=== PATIENT | female | born 1945 | race Caucasian/White ===

== ENCOUNTER 2017-01-24 06:01 | Day surgery (SDC) | payer MEDICARE ==
[~2017-01-24] VITALS: Ht 170.2 cm; Wt 89.4 kg
[~2017-01-24 06:01] MED LIST: ALLO100T PO; AMBI10TA PO; ESTR1 PO; FURO20 PO; GABA300C3 PO; GUAI100S6 PO; HYDR-2768 PO; LISI-360 PO; METH4PAK PO; OMEP20TA39 PO; OYST500T77 PO; PRED20 PO; ULTR50TA PO; VESI5TAB PO; ZITH250T PO
[2017-01-24] MEDS ORDERED: LACTATED RINGER'S 1000 ML IV PRN (06:30)
[2017-01-24] MEDS ORDERED: CHLORHEXIDINE GLUCONATE 2 % 1 PACK (2 CLOTHS) TOPICAL PRN (06:30)
[2017-01-24] MEDS ORDERED: METOPROLOL TARTRATE 25 MG TAB PO PRN (06:30)
[2017-01-24] MEDS ORDERED: SODIUM CHLORID 0.9% 500 ML IV PRN (06:30)
[2017-01-24] MEDS ORDERED: INSULIN HUMAN REGULAR 1,000 UNITS/10 ML VIAL SQ PRN (06:30)
[2017-01-24] MEDS ORDERED: POVIDONE IODINE 5% (ANTISEPSIS KIT) 4 APPLICATIONS EACH NARE PRN (06:30)
[2017-01-24] MEDS ORDERED: FURO20TA PO (06:50)
[2017-01-24] MEDS ORDERED: PROBCAP4 PO (06:50)
[2017-01-24] MEDS ORDERED: ESTR2TAB4 PO (06:50)
[2017-01-24] MEDS ORDERED: GABA300C5 PO (06:50)
[2017-01-24] MEDS ORDERED: CYCL1TAB29 PO (06:50)
[2017-01-24] MEDS ORDERED: ALLO100T PO (06:50)
[2017-01-24] MEDS ORDERED: OMEP40CA2 PO (06:53)
[2017-01-24] MEDS ORDERED: LISI-515 PO (06:53)
[2017-01-24] MEDS ORDERED: TRAM50TA PO (06:53)
[2017-01-24] MEDS ORDERED: [UNRECOGNIZED DRUG - CODE] PO (06:53)
[2017-01-24] MEDS ORDERED: TRIA1CAP PO (06:53)
[2017-01-24] MEDS ORDERED: VESI5TAB PO (07:31)
[2017-01-24] MEDS ORDERED: PERC5TAB12 PO (07:33)
[2017-01-24] MEDS ORDERED: IOHEXOL 350 MG/ML 100 ML BTL (for Cath Lab) OTHER ONE (08:48)
[2017-01-24] MEDS ORDERED: IOHEXOL 350 MG/ML 50 ML BTL (for Cath Lab) OTHER ONE (08:48)
[2017-01-24] MEDS ORDERED: HEPARIN SODIUM - IV 10,000 UNITS/10 ML VIAL ONE ×2 (08:56→09:17)
[2017-01-24] MEDS ORDERED: MIDAZOLAM HCL 5 MG/ML VIAL (1 ML) ONE ×2 (08:57→10:01)
[2017-01-24] MEDS ORDERED: NITROGLYCERIN INJ 5 ML ONE (11:30)
[2017-01-24] MEDS ORDERED: CLOPIDOGREL 300 MG TAB ONE (11:32)
--- NOTE | 2017-01-24 11:44 | MA ---
cc: THEO OVERTON DATE: 01/24/2017 PREOPERATIVE DIAGNOSIS Nonhealing wound left lower extremity with a lesion of the left superficial femoral artery/popliteal artery. SURGEON Theo Overton, DO PROCEDURE 1. Aortogram. 2. Selective left lower extremity arteriogram. 3. Balloon angioplasty and selective stenting of the left superficial femoral artery and popliteal artery with a 4 mm x 8 cm balloon , 5 mm x 8 cm Admiral IN PACT drug coated balloon and then a 8 cm x 6 mm Medtronic balloon. 4. Stent was a EV3 8 cm x 6 mm EV3 stent. IV FLUIDS Approximately 1 liter and moderate sedation. ESTIMATED BLOOD LOSS Minimal. URINE OUTPUT Not calculated. PROCEDURE The patient's bilateral groins were prepped and draped in sterile fashion. I got access to the right common femoral artery using Duplex ultrasound. I did inject 5 ccs of 1% lidocaine and anesthetized the subcu tissue. I then exchanged for a 5-English sheath, using Seldinger technique, I advanced my Omni flush catheter into the abdominal aorta. I shot an AP aortogram. I pulled my catheter out and shot pelvic oblique arteriogram. I then selected out the left external iliac common femoral artery and shot a selective left lower extremity arteriogram. After I shot my left lower extremity arteriogram I exchanged for a 6-English 45 cm destination sheath. 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 I used a Cook weighted crossing catheter, PHARMACEUTICAL DETAILER wire as well as a quick cross catheter to cross the lesion. I got across the lesion then heparinized the patient to an ACT of greater than 200. I performed balloon angioplasty with a 4 mm x 8 cm balloon. There was still residual stenosis at least 50%. I then used a drug coated balloon which was a 8 cm x 5 mm balloon and then afterwards there was still residual stenosis of approximately 50%. Then I used a 6 cm x 6 mm x 8 cm balloon and at low inflation of 6 atmospheres, there was still residual stenosis but now at this point there was a dissection which had a flow limitation. Based on this I placed a 6 mm x 8 cm EV3 self-expanding stent. At the end of the procedure the patient had good blood flow distally, at the level of the foot, there was signals. My other findings were that the abdominal aorta was widely patent. The bilateral renal arteries were patent. Bilateral common, internal and external iliac arteries were patent. The right common femoral artery and proximal superficial femoral artery as well as profunda femoral artery were patent with minimal disease. The left common femoral, profunda femoral artery and superficial femoral artery were widely patent. Proximally there was a chronic total occlusion that was treated as just dictated and it should be noted the distal SFA and popliteal artery were treated as described. The patient afterward did have good flow through the at knee and below-knee popliteal artery with three-vessel runoff across the level of the ankle. The patient tolerated the procedure well. 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 DO JIMENEZ Barba/RONAK /10:57 AM /11:14 AM
--- NOTE | 2017-01-24 18:44 | EKG ---
Date Performed: 01/24/2017 Time Performed: 06:56:14 PTAGE: 71 years EKG: Sinus rhythm NORMAL ECG NO PREVIOUS TRACING DOCTOR: Dominik Garcia Interpretating Date/Time 01/24/2017 18:42:41
== END 2017-01-24 15:07 | disposition home or self-care (01) ==
LOC: HSDC 06:01
PROVIDERS: ATTEND Surgery
DX: I73.9 Peripheral vascular disease, unspecified (principal); I77.1 Stricture of artery; Z01.810 Encounter for preprocedural cardiovascular examination; Z01.818 Encounter for other preprocedural examination
CPT/HCPCS: 37226; 75625; 75716; 85002; 93005; C1725; C1876; J1644; J2250; J3010; Q9967

== ENCOUNTER 2017-06-14 12:00 | Inpatient (IN) | payer MEDICARE ==
[~2017-06-14] VITALS: Ht 170.2 cm; Wt 85.0 kg
[~2017-06-14 12:00] MED LIST changes: -AMBI10TA PO; +CYCL1TAB29 PO; -ESTR1 PO; +ESTR2TAB4 PO; -FURO20 PO; +FURO20TA PO; -GABA300C3 PO; +GABA300C5 PO; -GUAI100S6 PO; -HYDR-2768 PO; -LISI-360 PO; +LISI-515 PO; -METH4PAK PO; -OMEP20TA39 PO; +OMEP40CA2 PO; -OYST500T77 PO; +PERC5TAB12 PO; -PRED20 PO; +PROBCAP4 PO; +TRAM50TA PO; +TRIA1CAP PO; -ULTR50TA PO; -ZITH250T PO; +[UNRECOGNIZED DRUG - CODE] PO
[2017-06-14 12:02] VITALS: BP 167/74; PULSE 80; RESP 12; TEMP 98.1; O2SAT 97
--- NOTE | 2017-06-14 12:08 | PD ---
Physical Exam Time Seen by Provider: 12:07 Narrative 71-year-old female sent by Dr. Mccoy for right second and third toe infections [address] Mccoy wants her admitted with IV antibiotics. Stage III kidney disease. Denies diabetes. Denies fever, vomiting. Patient seen in triage. VS reviewed. Patient awaiting bed placement. Data Data Last Documented VS Vital Signs Date Time Temp Pulse Resp B/P (MAP) Pulse Ox O2 Delivery O2 Flow Rate FiO2 06/14/17 12:02 98.1 80 12 167/74 (105) 97 MDM Supervised Visit with LIZETT: Марина Allan Jun 14, 2017 12:08
[2017-06-14 12:17] VITALS: BP 147/70; PULSE 72; RESP 20; TEMP 97.8; O2SAT 99
[2017-06-14 12:52] LABS: BASOPHIL % 0.6 % (0.0-2.0); EOSINOPHIL # 0.1 TH/MM3 (0-0.4); EOSINOPHIL % 2.2 % (0.0-4.0); HEMATOCRIT 32.7 % (35.0-46.0); HEMO FLAGS DIFF FINAL; LYMPH % 40.9 % (9.0-44.0); LYMPHOCYTE # 2.5 TH/MM3 (1.0-4.8); MEAN CELL VOLUME 84.9 FL (80.0-100.0); MEAN CORPUSCULAR HEMOGLOBIN 26.4 PG (27.0-34.0); MEAN CORPUSCULAR HGB CONC 31.1 % (32.0-36.0); NEUT % 49.3 % (16.0-70.0); PLATELET COUNT 268 TH/MM3 (150-450); RED BLOOD COUNT 3.85 MIL/MM3 (4.00-5.30); RED CELL DISTRIBUTION WIDTH 14.8 % (11.6-17.2); WHITE BLOOD COUNT 6.2 TH/MM3 (4.0-11.0)
--- NOTE | 2017-06-14 12:54 | PD ---
HPI Chief Complaint: Skin Problem Time Seen by Provider: 12:14 Travel History International Travel<30 days: No Contact w/Intl Traveler<30days: No Traveled to known affect area: No History of Present Illness HPI 70-year-old female that presents to the ED for evaluation of infection to her right third toe. Patient reports that about 10-14 days ago she injured her toes. Per patient she hit them with a piece of furniture. Per patient she had black toes on the third, second and fourth digits. Per patient she didn't think much of it and she continue her daily living. Patient has chronic neuropathy such she doesn't have much sensation down on the toes. Per patient starting around Saturday and Saturday she noted that she started having some erythema and swelling of the third toe which have continued. She had made an appointment with Dr. Donaldson and she was seen today by him who recommended that she comes here to get evaluated for IV antibiotics as patient was very concerning for osteomyelitis. Patient comes here with a prescription note that states that Dr. Donaldson wants the patient to be admitted, started on IV antibiotics with renal dose, 1 cultures labs as well as consultation to his partner Dr. Ozuna. Patient states that her pain currently history out of 10. Per patient she has no fevers chills or sweats. No history of diabetes or immunosuppression. She has never had anything like this before. She states the Darius did an x-ray at the office that showed possible osteomyelitis. No other medical issues reported. She does take Plavix. She has not taken anything for this so far. PFSH Past Medical History Hx Anticoagulant Therapy: Yes (PLAVIX) Anxiety: Yes Cancer: Yes (SKIN) High Cholesterol: Yes GERD: Yes Hiatal Hernia: Yes Hypertension: Yes Musculoskeletal: Yes (arthritis) Reproductive: Yes (LOW ESTRAGEN) Triglycerides - High: Yes Past Surgical History Abdominal Surgery: Yes (HERNIA REPAIR) Gynecologic Surgery: Yes (TL;Hysterectomy) Hysterectomy: Yes Other Surgery: Yes (SKIN) Social History Alcohol Use: Yes (SOCIAL) Tobacco Use: No Substance Use: No Allergies-Medications (Allergen,Severity, Reaction): Coded Allergies: No Known Allergies (Verified , 06/14/17) Reported Meds & Prescriptions Reported Meds & Active Scripts Active Reported Percocet (Oxycodone-Acetaminophen) 5-325 mg Tab 1 Tab PO Q6H PRN Vesicare (Solifenacin) 5 Mg Tab 5 Mg PO DAILY Triamterene-Hydrochlorothiazide 50-25 Mg Cap 1 Cap PO DAILY Tramadol (Tramadol HCl) 50 Mg Tab 50 Mg PO Q6H PRN Klor-Con M15 (Potassium Chloride Microencaps) 15 Meq Tab 15 Meq PO Q12HR Omeprazole 40 Mg Cap 40 Mg PO DAILY Lisinopril 20 Mg Tab 20 Mg PO DAILY Probiotic Acidophilus (Probiotic Product) 1 Cap Cap 1 Cap PO DAILY Gabapentin 300 Mg Cap 300 Mg PO TID Furosemide 20 Mg Tab 20 Mg PO DAILY Estrace (Estradiol) 2 Mg Tab 2 Mg PO DAILY Flexeril (Cyclobenzaprine HCl) 10 Mg Tab 10 Mg PO DAILY Allopurinol 100 Mg Tab 100 Mg PO DAILY Review of Systems Except as stated in HPI: all other systems reviewed are Neg Physical Exam Narrative GENERAL: SKIN: Warm and dry. HEAD: Atraumatic. Normocephalic. EYES: Pupils equal and round. No scleral icterus. No injection or drainage. ENT: No nasal bleeding or discharge. Mucous membranes pink and moist. Tongue is midline. No uvula deviation. NECK: Trachea midline. No JVD. CARDIOVASCULAR: Regular rate and rhythm. No murmurs, S3, S4. RESPIRATORY: No accessory muscle use. Clear to auscultation. Breath sounds equal bilaterally. GASTROINTESTINAL: Abdomen soft, non-tender, nondistended. Hepatic and splenic margins not palpable. MUSCULOSKELETAL: Extremities without clubbing, cyanosis, or edema. No obvious deformities. Full range of motion of all upper and lower extremities. Patient does have what appears to be erythema and swelling noted on the right third toe. Erythematous and warm to the touch. Patient does have a what appears to be a small ulceration to the tip of the digit on the plantar aspect with some purulence coming out of it. Slightly tender but not significantly tender. About 1-1/2 size bigger than the other toes. Most of the erythema is on the dorsal aspect of the toe but also noted on the plantar aspect of it. Good capillary refill. 2+ pulses bilaterally. NEUROLOGICAL: Awake and alert. No obvious cranial nerve deficits. Motor grossly within normal limits. Five out of 5 muscle strength in the arms and legs. Normal speech. PSYCHIATRIC: Appropriate mood and affect; insight and judgment normal. Data Data Last Documented VS Vital Signs Date Time Temp Pulse Resp B/P (MAP) Pulse Ox O2 Delivery O2 Flow Rate FiO2 06/14/17 12:17 97.8 72 20 147/70 (95) 99 Room Air Orders Orders Complete Blood Count With Diff (06/14/17 12:22) Basic Metabolic Panel (Bmp) (06/14/17 12:22) Blood Culture (06/14/17 12:22) Westergren Sedimentation Rate (06/14/17 12:22) Magnesium (Mg) (06/14/17 12:22) Wound Culture And Gram Stain (06/14/17 12:22) Iv Access Insert/Monitor (06/14/17 12:22) C-Reactive Protein (Crp) (06/14/17 12:54) Coag Profile (06/14/17 13:25) Piperacil-Tazo 2.25 Gm Premix (Zosyn 2.2 (06/14/17 14:00) Admit Order (Ed Use Only) (06/14/17 13:41) Consult Podiatry (06/14/17 ) Labs Laboratory Tests Test 06/14/17 12:30 White Blood Count 6.2 TH/MM3 Red Blood Count 3.85 MIL/MM3 Hemoglobin 10.2 GM/DL Hematocrit 32.7 % Mean Corpuscular Volume 84.9 FL Mean Corpuscular Hemoglobin 26.4 PG Mean Corpuscular Hemoglobin Concent 31.1 % Red Cell Distribution Width 14.8 % Platelet Count 268 TH/MM3 Mean Platelet Volume 7.3 FL Neutrophils (%) (Auto) 49.3 % Lymphocytes (%) (Auto) 40.9 % Monocytes (%) (Auto) 7.0 % Eosinophils (%) (Auto) 2.2 % Basophils (%) (Auto) 0.6 % Neutrophils # (Auto) 3.0 TH/MM3 Lymphocytes # (Auto) 2.5 TH/MM3 Monocytes # (Auto) 0.4 TH/MM3 Eosinophils # (Auto) 0.1 TH/MM3 Basophils # (Auto) 0.0 TH/MM3 CBC Comment DIFF FINAL Differential Comment Erythrocyte Sedimentation Rate 46 mm/hr Blood Urea Nitrogen 20 MG/DL Creatinine 1.35 MG/DL Random Glucose 117 MG/DL Calcium Level 8.7 MG/DL Magnesium Level 2.2 MG/DL Sodium Level 138 MEQ/L Potassium Level 4.0 MEQ/L Chloride Level 106 MEQ/L Carbon Dioxide Level 25.8 MEQ/L Anion Gap 6 MEQ/L Estimat Glomerular Filtration Rate 38 ML/MIN MDM Medical Decision Making Medical Screen Exam Complete: Yes Emergency Medical Condition: Yes Medical Record Reviewed: Yes Interpretation(s) CBC & BMP Diagram 06/14/17 12:30 Calcium Level 8.7, Magnesium Level 2.2 ESR elevated Differential Diagnosis Osteomyelitis versus cellulitis versus toe infection versus kidney disease Narrative Course 70-year-old female that presents to the ED for evaluation of possible infection to the right third toe. Patient was properly examined and was found to have signs and symptoms consistent with infection. Patient comes here with orders by the patient's plight just Dr. Donaldson for admission for IV antibiotics secondary to significant infection to the toe and her kidney disease. Labs were ordered. Patient will be started on Zosyn as per my attendings recommendations. Will wait for creatinine to check for creatinine clearance. Creatinine clearance was 42. At this time we'll start her on Zosyn. Labs were essentially unremarkable with an elevated ESR. Case was discussed with Dr. srinivasan for agrees to admission to the [facility]. I placed a consult to Dr. Ozuna as per target setter recommendations. Diagnosis Primary Impression: Cellulitis of toe of right foot Additional Impression: Osteomyelitis Qualified Codes: M86.9 - Osteomyelitis, unspecified Admitting Information Admitting Physician Requests: Admit Earl Leslie Jun 14, 2017 12:54
[2017-06-14 13:13] LABS: BICARBONATE 25.8 MEQ/L (21.0-32.0); MAGNESIUM 2.2 MG/DL (1.5-2.5)
[2017-06-14] MEDS ORDERED: PIPERACIL-TAZO 2.25 GM PREMIX 50 ML IV ONE (14:00)
[2017-06-14] MEDS ORDERED: ACETAMINOPHEN 325 MG TAB PO PRN (14:15)
[2017-06-14] MEDS ORDERED: BISACODYL 10 MG SUPP RECTAL PRN (14:15)
[2017-06-14] MEDS ORDERED: MAGNESIUM HYDROXIDE SUSP 30 ML CUP PO PRN (14:15)
[2017-06-14] MEDS ORDERED: TEMAZEPAM 15 MG CAP PO PRN (14:15)
[2017-06-14] MEDS ORDERED: SODIUM CHLORIDE 0.9% FLUSH 10 ML FLUSH IV FLUSH PRN (14:15)
[2017-06-14] MEDS ORDERED: LACTULOSE SYRUP 20 GM/30 ML CUP PO PRN (14:15)
[2017-06-14] MEDS ORDERED: SENNOSIDES 8.6 MG TAB PO PRN (14:15)
[2017-06-14] MEDS ORDERED: ONDANSETRON HCL 4 MG/2 ML VIAL IVP PRN (14:15)
[2017-06-14] MEDS ORDERED: NALOXONE HCL 0.4 MG/ML AMP IV PUSH PRN (14:15)
--- NOTE | 2017-06-14 14:16 | HHI.HP ---
HPI Service [facility] Primary Care Physician Artis Alexis MD Admission Diagnosis acute right 3rd toe cellulitis with osteomyelitis Diagnoses: Chief Complaint: RIGHT FOOT PAIN Travel History International Travel<30 Days: No Contact w/Intl Traveler <30 Da: No Traveled to Known Affected Are: No History of Present Illness Mrs. Sequeira is a pleasant 71-year-old white female with significant past medical history of peripheral arterial disease status post left SFA stent and angioplasty, peripheral neuropathy, hypertension, hyperlipidemia. 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 According to the patient, approximately 12 days ago she injured her toes on a piece of furniture. Initially she had bruising she didn't think much of it and continue on with her activities. Patient has history of chronic neuropathy and has chronic burning- like sensation. Her sensation is diminished on her toes. On Saturday, she started to notice some erythema and swelling of the third toe which continued up to the foot with swelling and erythema. She went to see her screed operator Dr. Nakul Medina who evaluated her and instructed her to come to the emergency room for evaluation. Indicates that he collected cultures and did imaging studies and there was concern that this could be osteomyelitis. Patient does have a history of chronic kidney disease stage III for which she sees Dr. Eugene. It appears that she is at baseline. Patient denies any fever, no chills. No recent chest pain, no shortness of breath. She does have some occasional low back pain with activity. Indicates she had redo L3 L4 L5 surgery at [facility]. She is on tramadol and Tylenol as needed for pain. Additionally, around November of this year she had a wound to the left anterior tibia and left foot small toe that were not healing. She was evaluated and was found to have severe peripheral vascular disease. On 01/24/2017, she underwent balloon angioplasty and stent to the left superficial femoral artery and popliteal artery per Dr. Gamble. She was put on Plavix. Indicates that she's had problems with her feet in the past. She had 2 surgeries to the toes on the right foot. Indicates that the neuropathy has become severe over the years and only controlled on gabapentin. She's due to see a neurologist. Patient was evaluated in emergency room, laboratory workup was completed. CBC unremarkable other than mild anemia. Sedimentation rate 46. Patient has been started on antibiotics. At this time she is complaining of pain. Patient is admitted for further evaluation and treatment. Review of Systems Constitutional: DENIES: Diaphoretic episodes, Fatigue, Fever, Weight gain, Weight loss, Chills, Dizziness, Change in appetite, Night Sweats Endocrine: DENIES: Abnorml menstrual pattern, Heat/cold intolerance, Polydipsia , Polyuria, Polyphagia Eyes: DENIES: Blurred vision, Diplopia, Eye inflammation, Eye pain, Vision loss , Photosensitivity, Double Vision Ears, nose, mouth, throat: DENIES: Tinnitus, Hearing loss, Vertigo, Nasal discharge, Oral lesions, Throat pain, Hoarseness, Ear Pain, Running Nose, Epistaxis, Sinus Pain, Toothache, Odynophagia Respiratory: DENIES: Apneas, Cough, Snoring, Wheezing, Hemoptysis, Sputum production, Shortness of breath Cardiovascular: DENIES: Chest pain, Palpitations, Syncope, Dyspnea on Exertion , PND, Lower Extremity Edema, Orthopnea, Claudication Gastrointestinal: COMPLAINS OF: Constipation, DENIES: Abdominal pain, Black stools, Bloody stools, Diarrhea, Nausea, Vomiting, Difficulty Swallowing, Anorexia Genitourinary: DENIES: Abnormal vaginal bleeding, Dysmenorrhea, Dyspareunia, Sexual dysfunction, Urinary frequency, Urinary incontinence, Urgency, Hematuria , Dysuria, Nocturia, Vaginal discharge Musculoskeletal: COMPLAINS OF: Joint pain (occasional low back pain, with sciatica), Joint Swelling (right foot second third and fourth toe with swelling , redness.), Neck pain (complains of neck pain radiating to the right shoulder, with tingling of fingers on the right hand.), DENIES: Muscle aches, Stiffness, Back pain Integumentary: DENIES: Abnormal pigmentation, Pruritus, Rash, Nail changes, Breast masses, Breast skin changes, Nipple discharge Hematologic/lymphatic: COMPLAINS OF: Bruising (bruises easily, on Plavix. Also was on steroids.), DENIES: Lymphadenopathy Immunologic/allergic: DENIES: Eczema, Urticaria Neurologic: DENIES: Abnormal gait, Headache, Localized weakness, Paresthesias, Seizures, Speech Problems, Tremor, Poor Balance Psychiatric: DENIES: Anxiety, Confusion, Mood changes, Depression, Hallucinations, Agitation, Suicidal Ideation, Homicidal Ideation, Delusions Past Family Social History Past Medical History PDV, follows regularly with Dr. Hills. Chronic back pain, was seen pain management. Used to have facet joint injections. Peripheral neuropathy, etiology unknown. Does not have diabetes. Has been recommended to follow-up with neurology Gout Arthritis Reflux Hypertension Overactive bladder Chronic kidney disease stage III, follows up with Dr. Eugene Polymyalgia rheumatica, was on steroids for a year and a half Basal cell skin cancer Had chronic left fifth toe and left anterior chin wound for a few months, it is now healed. Past Surgical History 01/24/2017, status post aortogram, balloon angioplasty and stent to the left superficial femoral artery and popliteal artery. Left ulnar transposition 5 years ago L3-L4 lumbar surgery January 2016, had redo of L3 L4 L5 November 2016. Both surgeries were done by Dr. Oconnell Right foot toe surgery many years ago Hysterectomy Hernia repair 2 Reported Medications Reported Meds & Active Scripts Active Reported Percocet (Oxycodone-Acetaminophen) 5-325 mg Tab 1 Tab PO Q6H PRN Vesicare (Solifenacin) 5 Mg Tab 5 Mg PO DAILY Triamterene-Hydrochlorothiazide 50-25 Mg Cap 1 Cap PO DAILY Tramadol (Tramadol HCl) 50 Mg Tab 50 Mg PO Q6H PRN Klor-Con M15 (Potassium Chloride Microencaps) 15 Meq Tab 15 Meq PO Q12HR Omeprazole 40 Mg Cap 40 Mg PO DAILY Lisinopril 20 Mg Tab 20 Mg PO DAILY Probiotic Acidophilus (Probiotic Product) 1 Cap Cap 1 Cap PO DAILY Gabapentin 300 Mg Cap 300 Mg PO TID Furosemide 20 Mg Tab 20 Mg PO DAILY Estrace (Estradiol) 2 Mg Tab 2 Mg PO DAILY Flexeril (Cyclobenzaprine HCl) 10 Mg Tab 10 Mg PO DAILY Allopurinol 100 Mg Tab 100 Mg PO DAILY Allergies: Coded Allergies: No Known Allergies (Verified , 06/14/17) Active Ordered Medications Inpatient Medications Acetaminophen (Tylenol) 650 mg Q4H PRN PO TEMP > 100.4; Start 06/14/17 at 14:15 ; Status UNV Allopurinol (Zyloprim) 100 mg DAILY PO ; Start 06/15/17 at 09:00; Status UNV Bisacodyl (Dulcolax Supp) 10 mg DAILY PRN RECTAL SEVERE CONSITIPATION; Start at 14:15; Status UNV Cyclobenzaprine HCl (Flexeril) 10 mg DAILY PO ; Start 06/15/17 at 09:00; Status UNV Estradiol (Estradiol) 2 mg DAILY PO ; Start 06/15/17 at 09:00; Status UNV Furosemide (Lasix) 20 mg DAILY PO ; Start 06/15/17 at 09:00; Status UNV Gabapentin (Neurontin) 300 mg TID PO ; Start 06/14/17 at 18:00; Status UNV Heparin Sodium (Porcine) (Heparin Inj) 5,000 units Q12H SQ ; Start 06/14/17 at 14:15; Status UNV Lactulose (Lactulose Liq) 30 ml DAILY PRN PO SEVERE CONSITIPATION; Start at 14:15; Status UNV Lisinopril (Prinivil) 20 mg DAILY PO ; Start 06/15/17 at 09:00; Status UNV Magnesium Hydroxide (Milk Of Magnesia Liq) 30 ml Q12H PRN PO MILD - MODERATE CONSTIPATION; Start 06/14/17 at 14:15; Status UNV Naloxone HCl (Narcan Inj) 0.4 mg UNSCH PRN IV PUSH SEE LABEL COMMENTS; Start at 14:15; Status UNV Non-Formulary Medication 1 cap DAILY PO ; Start 06/15/17 at 09:00; Status UNV Ondansetron HCl (Zofran Inj) 4 mg Q6H PRN IVP NAUSEA OR VOMITING; Start at 14:15; Status UNV Piperacillin Sod/ Tazobactam Sod 50 ml @ 100 mls/hr ONCE ONCE IV ; Start 06/14 at 14:00; Stop 06/14/17 at 14:29 Senna/Docusate Sodium (Dora-Colace) 1 tab BID PO ; Start 06/14/17 at 21:00; Status UNV Sennosides (Senokot) 17.2 mg Q12H PRN PO MODERATE - SEVERE CONSTIPATION; Start 06/14/17 at 14:15; Status UNV Sodium Chloride (NS Flush) 2 ml BID IV FLUSH ; Start 06/14/17 at 21:00; Status UNV Temazepam (Restoril) 15 mg HS PRN PO INSOMNIA; Start 06/14/17 at 14:15; Status UNV Tramadol HCl (Ultram) 50 mg Q6H PRN PO PAIN; Start 06/14/17 at 14:15; Status UNV Family History mother , history of diabetes and peripheral vascular disease Has a son who is in his 40s who has history of peripheral vascular disease Has a sister from complication of diabetes and peripheral vascular disease Social History Quit smoking 5 years ago Alcohol socially No substance abuse Lives with significant other, has grown children. Physical Exam Vital Signs Vital Signs Date Time Temp Pulse Resp B/P (MAP) Pulse Ox O2 Delivery O2 Flow Rate FiO2 06/14/17 12:17 97.8 72 20 147/70 (95) 99 Room Air 06/14/17 12:02 98.1 80 12 167/74 (105) 97 Physical Exam GENERAL: This is a well-nourished, well-developed patient, in no apparent distress. SKIN: Skin to upper extremities fragile, has bruising. HEAD: Atraumatic. Normocephalic. No temporal or scalp tenderness. EYES: Pupils equal round and reactive. Extraocular motions intact. No scleral icterus. No injection or drainage. ENT: Nose without bleeding, purulent drainage or septal hematoma. Throat without erythema, tonsillar hypertrophy or exudate. Uvula midline. Airway patent. NECK: Trachea midline. No JVD or lymphadenopathy. Supple, nontender, no meningeal signs. CARDIOVASCULAR: Regular rate and rhythm without murmurs, gallops, or rubs. RESPIRATORY: Clear to auscultation. Breath sounds equal bilaterally. No wheezes , rales, or rhonchi. GASTROINTESTINAL: Abdomen soft, non-tender, nondistended. No hepato-splenomegaly , or palpable masses. No guarding. MUSCULOSKELETAL: Extremities without clubbing, cyanosis. No calf tenderness. Negative Homans sign bilaterally. Left lower extremity with trace pretibial edema. Has a scar from a previous ulcer to the left anterior chin that is healing well. Left pedal pulse 2+. Right foot is noted with erythema and swelling up to mid tibia. Right foot second toe appears to have a small ulcerated area to the tip of the digit to the plantar aspect with purulent drainage. It is swollen, some tenderness. There is some mild swelling and erythema to the third toe. Left foot pedal pulse 2+. NEUROLOGICAL: Awake, alert oriented 3. No focal deficits. Laboratory Laboratory Tests Test 06/14/17 12:30 06/14/17 14:05 White Blood Count 6.2 Red Blood Count 3.85 Hemoglobin 10.2 Hematocrit 32.7 Mean Corpuscular Volume 84.9 Mean Corpuscular Hemoglobin 26.4 Mean Corpuscular Hemoglobin Concent 31.1 Red Cell Distribution Width 14.8 Platelet Count 268 Mean Platelet Volume 7.3 Neutrophils (%) (Auto) 49.3 Lymphocytes (%) (Auto) 40.9 Monocytes (%) (Auto) 7.0 Eosinophils (%) (Auto) 2.2 Basophils (%) (Auto) 0.6 Neutrophils # (Auto) 3.0 Lymphocytes # (Auto) 2.5 Monocytes # (Auto) 0.4 Eosinophils # (Auto) 0.1 Basophils # (Auto) 0.0 CBC Comment DIFF FINAL Differential Comment Erythrocyte Sedimentation Rate 46 Blood Urea Nitrogen 20 Creatinine 1.35 Random Glucose 117 Calcium Level 8.7 Magnesium Level 2.2 Sodium Level 138 Potassium Level 4.0 Chloride Level 106 Carbon Dioxide Level 25.8 Anion Gap 6 Estimat Glomerular Filtration Rate 38 Date/Time Source Procedure Growth Status 06/14/17 12:36 Blood Peripheral Aerobic Blood Culture Pending Received 06/14/17 12:36 Blood Peripheral Anaerobic Blood Culture Pending Received 06/14/17 12:30 Wound Toe Gram Stain Pending Received 06/14/17 12:30 Wound Toe Wound Culture Pending Received Result Diagram: 06/14/17 1230 06/14/17 1230 Caprini VTE Risk Assessment Caprini VTE Risk Assessment: Mod/High Risk (score >= 2) Caprini Risk Assessment Model Point Value = 1 Point Value = 2 Point Value = 3 Point Value = 5 Age 41-60 Minor surgery BMI > 25 kg/m2 Swollen legs Varicose veins or History of unexplained or recurrent spontaneous Oral contraceptives or hormone replacement Sepsis (< 1 month) Serious lung disease, including pneumonia (< 1 month) Abnormal pulmonary function Acute myocardial infarction Congestive heart failure (< 1 month) History of inflammatory bowel disease Medical patient at bed rest Age 61-74 Arthroscopic surgery Major open surgery (> 45 min) Laparoscopic surgery (> 45 min) Malignancy Confined to bed (> 72 hours) Immobilizing plaster cast Central venous access Age >= 75 History of VTE Family history of VTE Factor V Leiden Prothrombin [id number] Lupus anticoagulant Anticardiolipin antibodies Elevated serum homocysteine Heparin-induced thrombocytopenia Other congenital or acquired thrombophilia Stroke (< 1 month) Elective arthroplasty Hip, pelvis, or leg fracture Acute spinal cord injury (< 1 month) Prophylaxis Regimen Total Risk Factor Score Risk Level Prophylaxis Regimen 0-1 Low Early ambulation 2 Moderate Order ONE of the following: *Sequential Compression Device (SCD) *Heparin 5000 units SQ BID 3-4 Higher Order ONE of the following medications: *Heparin 5000 units SQ TID *Enoxaparin/Lovenox 40 mg SQ daily (WT < 150 kg, CrCl > 30 mL/min) *Enoxaparin/Lovenox 30 mg SQ daily (WT < 150 kg, CrCl > 10-29 mL/min) *Enoxaparin/Lovenox 30 mg SQ BID (WT < 150 kg, CrCl > 30 mL/min) AND/OR *Sequential Compression Device (SCD) 5 or more Highest Order ONE of the following medications: *Heparin 5000 units SQ TID (Preferred with Epidurals) *Enoxaparin/Lovenox 40 mg SQ daily (WT < 150 kg, CrCl > 30 mL/min) *Enoxaparin/Lovenox 30 mg SQ daily (WT < 150 kg, CrCl > 10-29 mL/min) *Enoxaparin/Lovenox 30 mg SQ BID (WT < 150 kg, CrCl > 30 mL/min) AND *Sequential Compression Device (SCD) Assessment and Plan Problem List: (1) Osteomyelitis ICD Codes: M86.9 - Osteomyelitis, unspecified Status: Acute (2) Cellulitis of toe of right foot ICD Codes: L03.031 - Cellulitis of right toe Status: Acute (3) Peripheral arterial disease ICD Codes: I73.9 - Peripheral vascular disease, unspecified Status: Chronic (4) Peripheral neuropathy ICD Codes: G62.9 - Polyneuropathy, unspecified Status: Chronic (5) Hypertension ICD Codes: I10 - Essential (primary) hypertension Status: Chronic (6) Low back pain ICD Codes: M54.5 - Low back pain Status: Chronic (7) recent lumbar surgery Status: Chronic (8) CKD (chronic kidney disease) stage 3, GFR 30-59 ml/min ICD Codes: N18.3 - Chronic kidney disease, stage 3 (moderate) Status: Chronic Assessment and Plan Admit to Dr. Mark 71-year-old female with history of PAD, peripheral neuropathy. Presented with infection, possible osteomyelitis to right foot third toe. Possible osteomyelitis right foot second and third toe with overlying cellulitis -Podiatry has been consulted for evaluation -Blood and wound cultures have been obtained, continue to follow results -Continue with antibiotics, Zosyn 3.375 g every 6. We will add vancomycin 1 g. -Pain management Peripheral arterial disease, status balloon angioplasty and stent to the left superficial femoral artery and popliteal artery January 2017 -Continue Plavix 75 mg daily Chronic kidney disease stage III -Continue to monitor renal function -Avoid nephrotoxic agents -hydrate cautiously Peripheral neuropathy -Continue with gabapentin 300 mg by mouth 3 times a day Hypertension, stable -Continue home medical Chronic low back pain, recent lumbar surgery -Continue pain management Home medications reviewed, initiated as indicated Heparin 5000 units subcutaneous twice a day for DVT prophylaxis Plan of care has been discussed with the patient, attending and registered nurse. Further management of the patient will be dependent on the hospital course This patient was seen by myself and Dr. Mark, this H&P is written on his behalf Physician Certification 2 Midnight Certification Type: Admission for Inpatient Services Order for Inpatient Services The services are ordered in accordance with Medicare regulations or non- Medicare payer requirements, as applicable. In the case of services not specified as inpatient-only, they are appropriately provided as inpatient services in accordance with the 2-midnight benchmark. Estimated LOS (days): 2 2 days is the estimated time the patient will need to remain in the hospital, assuming treatment plan goals are met and no additional complications. Post-Hospital Plan: Home Health Problem Qualifiers (1) Osteomyelitis: Qualified Codes: M86.9 - Osteomyelitis, unspecified (2) Peripheral neuropathy: Qualified Codes: G62.9 - Polyneuropathy, unspecified (3) Hypertension: Qualified Codes: I10 - Essential (primary) hypertension (4) Low back pain: Qualified Codes: M54.42 - Lumbago with sciatica, left side; G89.29 - Other chronic pain Elizabeth Tom Jun 14, 2017 14:16
[2017-06-14 14:27] LABS: INTERNATIONAL NORMALIZED RATIO 0.9 RATIO; PROTHROMBIN TIME - PATIENT 9.9 SEC (9.8-11.6)
[2017-06-14] MEDS ORDERED: HYDROmorphone HCL PF 1 MG/ML VIAL IV PUSH PRN (15:00)
[2017-06-14 16:00] VITALS: BP 162/72; PULSE 52; RESP 20; TEMP 97.3; O2SAT 100
[2017-06-14] MEDS ORDERED: VANCOMYCIN INJ 1,000 MG in SODIUM CHLOR 0.9% 250 ML INJ 250 ML IV ONE (18:00)
[2017-06-14] MEDS: traMADol HCL 50 MG TAB PO PRN (18:13)
[2017-06-14] MEDS: GABAPENTIN 300 MG CAP PO SCH (18:32)
[2017-06-14] MEDS: HEPARIN SODIUM - SQ 10,000 UNITS/ML VIAL SQ SCH (18:56)
[2017-06-14 20:00] VITALS: BP 196/81; PULSE 61; RESP 22; TEMP 95.6; O2SAT 100
[2017-06-14] MEDS: DOCUSATE SODIUM 50 MG/SENNA 8.6 MG TAB PO SCH (21:00)
[2017-06-14] MEDS: PIPERACIL-TAZO 3.375 GM PREMIX 50 ML IV SCH (21:30)
[2017-06-14] MEDS: SODIUM CHLORIDE 0.9% FLUSH 10 ML FLUSH IV FLUSH SCH (21:30)
[2017-06-14] MEDS: POTASSIUM CHLORIDE 10 MEQ CONTROLLED RELEASE TAB PO SCH (21:33)
[2017-06-14] MEDS ORDERED: cloNIDine HCL 0.1 MG TAB PO PRN (21:45)
[2017-06-15] VITALS: BP 132/59; PULSE 56; RESP 22; TEMP 95.7; O2SAT 97
[2017-06-15] MEDS: PANTOPRAZOLE SOD 40 MG DELAYED RELEASE TAB PO SCH (05:03)
[2017-06-15] MEDS: PIPERACIL-TAZO 3.375 GM PREMIX 50 ML IV SCH ×4 (05:03→21:22)
[2017-06-15] MEDS: HEPARIN SODIUM - SQ 10,000 UNITS/ML VIAL SQ SCH ×2 (05:03→17:21)
[2017-06-15 06:55] LABS: AUTOMATED NEUTROPHIL # 2.8 TH/MM3 (1.8-7.7); BASOPHIL % 0.6 % (0.0-2.0); EOSINOPHIL # 0.2 TH/MM3 (0-0.4); EOSINOPHIL % 2.6 % (0.0-4.0); HEMATOCRIT 31.3 % (35.0-46.0); HEMO FLAGS DIFF FINAL; LYMPH % 42.8 % (9.0-44.0); LYMPHOCYTE # 2.6 TH/MM3 (1.0-4.8); MEAN CELL VOLUME 84.9 FL (80.0-100.0); MEAN CORPUSCULAR HGB CONC 31.8 % (32.0-36.0); PLATELET COUNT 235 TH/MM3 (150-450); RED BLOOD COUNT 3.68 MIL/MM3 (4.00-5.30); RED CELL DISTRIBUTION WIDTH 14.7 % (11.6-17.2); WHITE BLOOD COUNT 6.2 TH/MM3 (4.0-11.0)
[2017-06-15 07:09] LABS: BICARBONATE 27.2 MEQ/L (21.0-32.0); POTASSIUM 4.5 MEQ/L (3.5-5.1)
[2017-06-15 08:00] VITALS: BP 140/65; PULSE 57; RESP 16; TEMP 97.3; O2SAT 98
--- NOTE | 2017-06-15 08:15 | PD.POD ---
Subjective Podiatric Problems Right foot ulceration with improving cellulitis. Patient feels she has seen improvement over the last 24 hours. She denies any n/v/f/h/c/sob/pain. Pain score: 0 Past Med/Surg/Social History Social History Smoking Status: Former Smoker Objective Vital Signs Vital Signs Date Time Temp Pulse Resp B/P (MAP) Pulse Ox O2 Delivery O2 Flow Rate FiO2 06/15/17 00:00 95.7 56 22 132/59 (83) 97 06/14/17 20:00 95.6 61 22 196/81 (119) 100 06/14/17 16:00 97.3 52 20 162/72 (102) 100 06/14/17 15:07 06/14/17 12:17 97.8 72 20 147/70 (95) 99 Room Air 06/14/17 12:02 98.1 80 12 167/74 (105) 97 Coded Allergies: No Known Allergies (Verified , 06/14/17) Exam-Podiatry Remarks Decreased erythema to right 2nd digit, still extending to MPJ but intensity is greatly decreased. Blister de-roofed, underlying tissue is healthy and not ulcerated. No other changes from time of consult. Assessment & Plan A/P 1) Right foot 2nd digit stage II ulceration with resolving cellulitis -bedside debridement done today -cont iv abx -likely d/c on 10 days PO abx pending final wound cxs -daily dressing changes order for nursing staff -xrays pending -f/u with 3-5 days after d/c Vashti Ozuna DPM Jun 15, 2017 08:15
[2017-06-15] MEDS: FUROSEMIDE 20 MG TAB PO SCH ×2 (09:00→21:00)
[2017-06-15] MEDS: TRIAMTERENE/HCTZ 37.5 MG/25 MG TAB PO SCH ×2 (09:00→12:13)
[2017-06-15] MEDS: POTASSIUM CHLORIDE 20 MEQ CONTROLLED RELEASE TAB PO SCH (09:00)
[2017-06-15] MEDS ORDERED: PROBIOTIC PRODUCT PO SCH (09:00)
[2017-06-15] MEDS ORDERED: LISINOPRIL 20 MG TAB PO SCH (09:00)
[2017-06-15] MEDS ORDERED: FUROSEMIDE 20 MG TAB PO SCH (09:00)
[2017-06-15] MEDS: BACITRACIN OINT 0.9 GM PKT TOPICAL SCH (09:00)
--- NOTE | 2017-06-15 09:17 | RADRPT ---
EXAM DATE/TIME: 06/15/2017 07:55 [facility] COMPARISON: No previous studies available for comparison. INDICATIONS : Right 2nd digit infection MEDICAL HISTORY : None. SURGICAL HISTORY : None. ENCOUNTER: Initial ACUITY: 1 day PAIN SCORE: 0/10 LOCATION: Right 2nd digit FINDINGS: 3 views of the right foot demonstrate no acute fracture or dislocation. Mineralization is normal. The re is an old healed fracture of the distal fourth and fifth metatarsal. There is a joint space narrow ing with osteophytes at the first digit interphalangeal joint and second through fourth digits proxim al interphalangeal joints. Lisfranc joint appears intact. No erosions or periosteal reaction is ident ified. There is soft tissue swelling on the posterior aspect of the distal foot.. CONCLUSION: Soft tissue swelling of the posterior aspect of the distal foot. No erosion or associated changes are present within the second digit to indicate osteomyelitis on this exam. Ramón Arora MD on June 15, 2017 at 9:14 Board Certified Radiologist. This report was verified electronically.
--- NOTE | 2017-06-15 10:37 | MB ---
cc: VASHTI JORGENSEN DATE OF CONSULTATION: 06/14/17 This is early entry and the patient was seen on June 14 at 7 p.m. CHIEF COMPLAINT Right second digit ulceration with cellulitis. HISTORY OF PRESENT ILLNESS Ms. Sequeira is a 71-year-old patient known to my partner Dr. Mark Mccoy. He saw her in the office on Saturday where she presented with a wound to the distal aspect of the second digit and cellulitis to the second MPJ. The x-rays in the office did not show any signs of osteomyelitis or gas in the tissue, but given the patient's kidney issues and extent of infection he felt that an admission for IV antibiotics was warranted. Since being admitted, she feels like that the redness in her toe has decreased and the swelling in her leg has decreased. PAST MEDICAL HISTORY 1. Peripheral artery disease. 2. Peripheral neuropathy. 3. Hypertension. 4. Hyperlipidemia. 5. Arthritis. 6. Reflux. 7. Overactive bladder. 8. Stage III kidney disease. 9. Polymyalgia rheumatica. 10. Basal cell cancer. 11. Chronic back pain. PAST SURGICAL HISTORY 1. Aortogram and balloon angioplasty of superficial femoral artery and popliteal artery stenting. 2. Left ulnar transposition. 3. L3-L4 lumbar surgery with revision of L3, L4, L5. 4. Hysterectomy. 5. Hernia repair x2. FAMILY HISTORY Noncontributory. SOCIAL HISTORY The patient lives at home with her . Denies any alcohol or drug abuse. MEDICATIONS Please see list. ALLERGIES NO KNOWN DRUG ALLERGIES. VITAL SIGNS At time of consultation: Temperature 97.3, pulse 52, blood pressure 162/72, pulse ox 100. LABORATORY DATA At time of exam: White count 6.2, hemoglobin 10.2, platelets 268. INR 0.9. Sodium 134, potassium 4.0, chloride 101, carbon dioxide 25.8, BUN 20, glucose 117. CRP 5.62. PHYSICAL EXAMINATION The patient has bilateral palpable pulses but they are weak to DP and PT. Cap fill time less than 3 seconds. Gross sensation is severely diminished. There is +2 pitting edema to the right ankle and foot. The patient denies any pain or discomfort and no malodor. The distal second digit has an ulceration of 0.5 cm x 0.5 cm x 0. No deep probing. No exposed bone or tendon. On the dorsal aspect, there is a fluctuant blister on the dorsal aspect of the second digit. Erythema extends the MPJ. ASSESSMENT Right foot second digit stage II ulceration with cellulitis. PLAN 1. We will plan a bedside debridement of wound and blister tomorrow. 2. Continue IV antibiotics. 3. We will likely be able to discharge home on oral antibiotics. 4. Wound cultures are pending 5. X-rays are pending. 6. Wound care orders entered for nursing staff. Vashti MARTINEZ/BJF /8:06 AM /9:59 AM MTDD
--- NOTE | 2017-06-15 11:24 | HHI.PR ---
Subjective Subjective Remarks Open bathroom briefly for a.m. bathing impression her teeth Back to bed encouraged elevation of lower extremities Some oozing and bleeding this morning after small bedside debridement per podiatry Good historian Review of Systems Constitutional Constitutional: Weakness (mild) Constitutional Remarks 10 point ROS done positives noted Musculoskeletal MS: Weakness, Swelling (right lower extremity), Discomfort/Pain (mild to moderate) Integumentary Skin: Wounds (right lower extremity) Psychiatric Psychiatric: Normal Mood Vitals/Results Vital Signs Vital Signs Date Time Temp Pulse Resp B/P (MAP) Pulse Ox O2 Delivery O2 Flow Rate FiO2 06/15/17 08:00 97.3 57 16 140/65 (90) 98 06/15/17 00:00 95.7 56 22 132/59 (83) 97 06/14/17 20:00 95.6 61 22 196/81 (119) 100 06/14/17 16:00 97.3 52 20 162/72 (102) 100 06/14/17 15:07 06/14/17 12:17 97.8 72 20 147/70 (95) 99 Room Air 06/14/17 12:02 98.1 80 12 167/74 (105) 97 CBC/BMP: 06/15/17 0508 06/15/17 0508 Lab Results Laboratory Tests Test 06/14/17 12:30 06/14/17 14:05 06/15/17 05:08 White Blood Count 6.2 TH/MM3 6.2 TH/MM3 Red Blood Count 3.85 MIL/MM3 3.68 MIL/MM3 Hemoglobin 10.2 GM/DL 9.9 GM/DL Hematocrit 32.7 % 31.3 % Mean Corpuscular Volume 84.9 FL 84.9 FL Mean Corpuscular Hemoglobin 26.4 PG 27.0 PG Mean Corpuscular Hemoglobin Concent 31.1 % 31.8 % Red Cell Distribution Width 14.8 % 14.7 % Platelet Count 268 TH/MM3 235 TH/MM3 Mean Platelet Volume 7.3 FL 7.7 FL Neutrophils (%) (Auto) 49.3 % 46.0 % Lymphocytes (%) (Auto) 40.9 % 42.8 % Monocytes (%) (Auto) 7.0 % 8.0 % Eosinophils (%) (Auto) 2.2 % 2.6 % Basophils (%) (Auto) 0.6 % 0.6 % Neutrophils # (Auto) 3.0 TH/MM3 2.8 TH/MM3 Lymphocytes # (Auto) 2.5 TH/MM3 2.6 TH/MM3 Monocytes # (Auto) 0.4 TH/MM3 0.5 TH/MM3 Eosinophils # (Auto) 0.1 TH/MM3 0.2 TH/MM3 Basophils # (Auto) 0.0 TH/MM3 0.0 TH/MM3 CBC Comment DIFF FINAL DIFF FINAL Differential Comment Erythrocyte Sedimentation Rate 46 mm/hr Blood Urea Nitrogen 20 MG/DL 18 MG/DL Creatinine 1.35 MG/DL 1.36 MG/DL Random Glucose 117 MG/DL 85 MG/DL Calcium Level 8.7 MG/DL 8.7 MG/DL Magnesium Level 2.2 MG/DL Sodium Level 138 MEQ/L 139 MEQ/L Potassium Level 4.0 MEQ/L 4.5 MEQ/L Chloride Level 106 MEQ/L 105 MEQ/L Carbon Dioxide Level 25.8 MEQ/L 27.2 MEQ/L Anion Gap 6 MEQ/L 7 MEQ/L Estimat Glomerular Filtration Rate 38 ML/MIN 38 ML/MIN C-Reactive Protein 5.62 MG/DL Prothrombin Time 9.9 SEC Prothromb Time International Ratio 0.9 RATIO Activated Partial Thromboplast Time 24.0 SEC Microbiology Microbiology 06/14/17 Aerobic Blood Culture, Received Pending 06/14/17 Anaerobic Blood Culture, Received Pending 06/14/17 Aerobic Blood Culture, Received Pending 06/14/17 Anaerobic Blood Culture, Received Pending 06/14/17 Gram Stain - Final, Resulted 06/14/17 Wound Culture, Resulted Pending Imaging Remarks Last Impressions Foot X-Ray 06/15/17 0000 Signed Impressions: Service Date/Time: Thursday, June 15, 2017 07:55 - CONCLUSION: Soft tissue swelling of the posterior aspect of the distal foot. No erosion or associated changes are present within the second digit to indicate osteomyelitis on this exam. Ramón Arora MD Current Medications Administered Medications Medications (Trade) Dose Ordered Sig/Mohan Route PRN Reason Start Time Stop Time Status Last Admin Dose Admin Gabapentin (Neurontin) 300 mg TID PO 06/14/17 18:00 06/14/17 18:32 Tramadol HCl (Ultram) 50 mg Q6H PRN PO PAIN 1-4 06/14/17 14:15 06/14/17 18:13 Pantoprazole Sodium (Protonix) 40 mg DAILY@0600 PO 06/15/17 06:00 06/15/17 05:03 Sodium Chloride (NS Flush) 2 ml BID IV FLUSH 06/14/17 21:00 06/14/17 21:30 Heparin Sodium (Porcine) (Heparin Inj) 5,000 units Q12H SQ 06/14/17 18:00 06/14/17 18:56 Hydromorphone HCl (Dilaudid Pf Inj) 0.2 mg Q4H PRN IV PUSH PAIN SCALE 5 TO 10 06/14/17 15:00 06/14/17 18:14 Piperacillin Sod/ Tazobactam Sod 50 ml @ 100 mls/hr Q6H IV 06/14/17 22:00 06/15/17 05:03 Potassium Chloride (KCl) 10 meq HS PO 06/14/17 21:00 06/14/17 21:33 Physical Exam General General Appearance: Well Developed, Comfortable Eyes Eye Exam: Pupils Equal, Pupils Reactive Ears & Nose Ears & Nose Exam: Nasal Mucosa [place] Throat Throat Exam: Oral Mucosa [place] & Moist Neck Neck Exam: Neck Supple Pulmonary Resp Exam: Diminished Breath Sounds (mild, previous smoker) Cardiology CV Exam: Regular Gastrointestinal/Abdomen GI Exam: Soft, Non-Tender, Bowel Sounds Present Musculoskeletal MS Exam: Joints Intact Integumentary Skin Exam: Warm, Dry, Ulcer(s) (ulcerated areas on the right foot metacarpal, second toe) Extremeties Extremities Exam: No Edema Extremeties Remarks Skin tone lower extremities thick borderline tough Neurologic Neuro Exam: Alert, Awake, Oriented, Speech Clear, Moving All Extremities Assessment/Plan Assessment/Plan Signs reviewed, pulse labile between 56 and 72, respiratory rate 22 noted this a.m., but no acute shortness of breath noted on my exam Labs reviewed, creatinine 1.36, noted CRP 5.62 Right foot 2nd digit stage II ulceration with resolving cellulitis -bedside debridement done today -cont iv abx -likely d/c on 10 days PO abx pending final wound cxs -daily dressing changes order for nursing staff -xrays pending -f/u with 3-5 days after d/c osteomyelitis right foot and metacarpals ruled out Likely will need 10 days of by mouth antibiotics, wound culture resulted today negative Podiatry, did mild bedside debridement according to patient this a.m., bleeding and oozing initially afterwards but has stopped now. Will have nurse clean, and give instructions for dressing -Blood and wound cultures, blood culture still pending Zosyn and vancomycin IV -Pain management, encourage patient to maintain elevated unless ambulating to bathroom Peripheral arterial disease, status balloon angioplasty and stent to the left superficial femoral artery and popliteal artery January 2017 Nuchal management ,Plavix 75 mg daily Chronic kidney disease stage III -Avoid nephrotoxic agents, medical management monitor labs Anemia probably secondary to chronic kidney disease, stable monitor labs Peripheral neuropathy Medical management gabapentin 300 mg by mouth 3 times a day Hypertension, stable Chronic low back pain, lumbar surgery 2 in the past 2 years Continue pain management Monitor for any constipation, bowel regimen explained to patient, noted small amount of diarrhea this past p.m., probable secondary to IV antibiotics we'll continue to monitor Home medications reviewed, initiated as indicated Heparin subcutaneous ,DVT prophylaxis Discharge planning pending culture results and recommendations from podiatry, possible Saturday or Saturday Discussed with patient Discussed with Dr. Mark, seen on his behalf Elvia Bryan Jun 15, 2017 11:24
[2017-06-15] MEDS: GABAPENTIN 300 MG CAP PO SCH ×3 (11:50→17:21)
[2017-06-15] MEDS: CYCLOBENZAPRINE HCL 10 MG TAB PO SCH (11:50)
[2017-06-15] MEDS: DOCUSATE SODIUM 50 MG/SENNA 8.6 MG TAB PO SCH ×2 (11:50→21:22)
[2017-06-15] MEDS: SODIUM CHLORIDE 0.9% FLUSH 10 ML FLUSH IV FLUSH SCH ×2 (11:50→21:22)
[2017-06-15] MEDS: LISINOPRIL 20 MG TAB PO SCH ×2 (11:52→21:22)
[2017-06-15] MEDS: ALLOPURINOL 100 MG TAB PO SCH (11:52)
[2017-06-15 12:00] VITALS: BP 156/72; PULSE 56; RESP 18; TEMP 96.3; O2SAT 97
[2017-06-15] MEDS: ESTRADIOL 1 MG TAB PO SCH (12:12)
[2017-06-15] MEDS: traMADol HCL 50 MG TAB PO PRN (12:13)
[2017-06-15] MEDS: TOLTERODINE TARTRATE 2 MG CAP LA PO SCH (12:13)
[2017-06-15 16:00] VITALS: BP 136/72; PULSE 54; RESP 18; TEMP 96.7; O2SAT 98
[2017-06-15] MEDS ORDERED: PIPERACILLIN/TAZ 4.5 GM VIAL 4.5 GM in SODIUM CHLORIDE 0.9% INJ 100 ML IV ONE (16:59)
[2017-06-15] MEDS: POTASSIUM CHLORIDE 10 MEQ CONTROLLED RELEASE TAB PO SCH (17:21)
[2017-06-15 20:00] VITALS: BP 121/56; PULSE 68; RESP 19; TEMP 96; O2SAT 96
[2017-06-16] VITALS: BP 124/61; PULSE 58; RESP 19; TEMP 96.1; O2SAT 98
[2017-06-16] MEDS: PANTOPRAZOLE SOD 40 MG DELAYED RELEASE TAB PO SCH (05:23)
[2017-06-16] MEDS: PIPERACIL-TAZO 3.375 GM PREMIX 50 ML IV SCH ×3 (05:24→16:08)
[2017-06-16] MEDS: HEPARIN SODIUM - SQ 10,000 UNITS/ML VIAL SQ SCH ×2 (05:25→17:14)
[2017-06-16 08:00] VITALS: BP 135/62; PULSE 70; RESP 18; TEMP 97.3; O2SAT 95
[2017-06-16] MEDS: GABAPENTIN 300 MG CAP PO SCH ×3 (09:32→17:14)
[2017-06-16] MEDS: ESTRADIOL 1 MG TAB PO SCH (09:32)
[2017-06-16] MEDS: POTASSIUM CHLORIDE 20 MEQ CONTROLLED RELEASE TAB PO SCH (09:33)
[2017-06-16] MEDS: LISINOPRIL 20 MG TAB PO SCH (09:33)
[2017-06-16] MEDS: TOLTERODINE TARTRATE 2 MG CAP LA PO SCH (09:33)
[2017-06-16] MEDS: CYCLOBENZAPRINE HCL 10 MG TAB PO SCH (09:34)
[2017-06-16] MEDS: ALLOPURINOL 100 MG TAB PO SCH (09:34)
[2017-06-16] MEDS: FUROSEMIDE 20 MG TAB PO SCH (09:35)
[2017-06-16] MEDS: BACITRACIN OINT 0.9 GM PKT TOPICAL SCH (09:35)
[2017-06-16] MEDS: SODIUM CHLORIDE 0.9% FLUSH 10 ML FLUSH IV FLUSH SCH (09:35)
[2017-06-16] MEDS: DOCUSATE SODIUM 50 MG/SENNA 8.6 MG TAB PO SCH (09:35)
--- NOTE | 2017-06-16 11:19 | HHI.PR ---
Subjective Subjective Remarks anxious, hasnt gotten food today., multiple calls made. supportive care per nurse and myself. Wants to go home. Dressing rt. foot /2nd toe secure and dry. Socks on and leg elevated. afebrile (Elvia Bryan) Review of Systems Constitutional Constitutional: Weakness (improved, able to ambulate) Constitutional Remarks 10 point ROS done positives noted (Elvia Bryan) GI/Abdomen GI/Abdominal Exam: Diarrhea (X1, resolved) (Elvia Bryan) Musculoskeletal MS: Weakness, Swelling (right lower extremity), Discomfort/Pain (mild to moderate) (Elvia Bryan) Integumentary Skin: Wounds (right lower extremity) (Elvia Bryan) Psychiatric Psychiatric: Normal Mood, Anxiety (Elvia Bryan) Vitals/Results Vital Signs Vital Signs Date Time Temp Pulse Resp B/P (MAP) Pulse Ox O2 Delivery O2 Flow Rate FiO2 06/16/17 08:00 97.3 70 18 135/62 (86) 95 06/16/17 00:00 96.1 58 19 124/61 (82) 98 06/15/17 20:00 96.0 68 19 121/56 (77) 96 06/15/17 16:00 96.7 54 18 136/72 (93) 98 06/15/17 13:38 20 06/15/17 12:00 96.3 56 18 156/72 (100) 97 (Elvia Bryan) CBC/BMP: 06/15/17 0508 06/15/17 0508 Current Medications Administered Medications Medications (Trade) Dose Ordered Sig/Mohan Route PRN Reason Start Time Stop Time Status Last Admin Dose Admin Allopurinol (Zyloprim) 100 mg DAILY PO 06/15/17 09:00 06/16/17 09:34 Cyclobenzaprine HCl (Flexeril) 10 mg DAILY PO 06/15/17 09:00 06/16/17 09:34 Estradiol (Estradiol) 2 mg DAILY PO 06/15/17 09:00 06/16/17 09:32 Gabapentin (Neurontin) 300 mg TID PO 06/14/17 18:00 06/16/17 09:32 Tramadol HCl (Ultram) 50 mg Q6H PRN PO PAIN 1-4 06/14/17 14:15 06/15/17 12:13 Pantoprazole Sodium (Protonix) 40 mg DAILY@0600 PO 06/15/17 06:00 06/16/17 05:23 Potassium Chloride (KCl) 20 meq DAILY PO 06/15/17 09:00 06/15/17 09:00 Tolterodine Tartrate (Detrol La) 2 mg DAILY PO 06/15/17 09:00 06/16/17 09:33 Triamterene/HCTZ (Maxzide 37.5-25 Mg) 1 tab DAILY PO 06/15/17 09:00 06/15/17 12:13 Sodium Chloride (NS Flush) 2 ml BID IV FLUSH 06/14/17 21:00 06/16/17 09:35 Heparin Sodium (Porcine) (Heparin Inj) 5,000 units Q12H SQ 06/14/17 18:00 06/15/17 17:21 Senna/Docusate Sodium (Dora-Colace) 1 tab BID PO 06/14/17 21:00 06/15/17 21:22 Hydromorphone HCl (Dilaudid Pf Inj) 0.2 mg Q4H PRN IV PUSH PAIN SCALE 5 TO 10 06/14/17 15:00 06/14/17 18:14 Piperacillin Sod/ Tazobactam Sod 50 ml @ 100 mls/hr Q6H IV 06/14/17 22:00 06/16/17 09:34 Potassium Chloride (KCl) 10 meq HS PO 06/14/17 21:00 06/15/17 17:21 Lisinopril (Prinivil) 20 mg BID PO 06/15/17 09:00 06/16/17 09:33 Bacitracin (Bacitracin Oint Packet) 0.9 gm DAILY TOPICAL 06/15/17 09:00 06/16/17 09:35 (Elvia Byran) Physical Exam General General Appearance: Well Developed, Comfortable, Anxious (Elvia Bryan) Eyes Eye Exam: Pupils Equal, Pupils Reactive (Elvia Bryan) Ears & Nose Ears & Nose Exam: Nasal Mucosa [place] ([place],Elvia M. PROJECT CONTROL MANAGER) Throat Throat Exam: Oral Mucosa [place] & Moist (Elvia Bryan. PROJECT CONTROL MANAGER) Neck Neck Exam: Neck Supple (Elvia Bryan. [employer] CONTR[employer] MANAGER) Pulmonary Resp Exam: Clear Bilaterally, Breath Sounds Equal, No Distress (Elvia Bryan. [employer] CONTROL MANAGER) Cardiology CV Exam: Regular (Elvia Bryan. [employer] CONTROL MANAGER) Gastrointestinal/Abdomen GI Exam: Soft, Non-Tender, Bowel Sounds Present (Elvia Bryan [employer] CONTR[employer] MANAGER) Musculoskeletal MS Exam: Joints Intact (Elvia Bryan [employer] CONTROL MANAGER) Integumentary Skin Exam: Warm, Dry, Ulcer(s) (ulcerated areas on the right foot metacarpal, second toe) (Elvia Bryan [employer] CONTR[employer] MANAGER) Extremeties Extremities Exam: No Edema Extremeties Remarks lower extremity no erythema rt. LE (Elvia Bryan. PRO[employer] CONTROL MANAGER) Neurologic Neuro Exam: Alert, Awake, Oriented, Speech Clear, Moving All Extremities (Elvia BryanP) Assessment/Plan Assessment/Plan Increased anxiety today. Didn't get food this am until 1045, ordered last am. Nurse and myself took her coffee and p-butter crackers, but still updet. Supportive care. Didnt like dressing yesterday. Reassured her dressing was clean without any further bleeding. Right foot 2nd digit stage II ulceration with resolving cellulitis -bedside debridement done yesterday and dressing secured, No active bleeding noted. iv abx until DC, likely d/c on 10 days PO abx pending final wound cxs -daily dressing changes order for nursing staff, no erythema RLL osteomyelitis right foot and metacarpals ruled out Likely will need 10 days of by mouth antibiotics, wound culture resulted today negative Podiatry, did mild bedside debridement according to patient this a.m., bleeding and oozing initially afterwards but has stopped now. Will have nurse clean, and give instructions for dressing -Blood and wound cultures, blood culture still pending Zosyn and vancomycin IV History of Peripheral arterial disease, stable, status balloon angioplasty and stent to the left superficial femoral artery and popliteal artery January 2017 Medical management ,Plavix 75 mg daily Chronic kidney disease stage III, stable, Encourage PO fluids -Avoid nephrotoxic agents, medical management monitor labs Anemia probably secondary to chronic kidney disease, stable monitor labs Peripheral neuropathy Medical management gabapentin 300 mg by mouth 3 times a day Hypertension, stable Chronic low back pain, lumbar surgery 2 in the past 2 years Continue pain management Monitor for any constipation, bowel regimen explained to patient, diarrhea X 1, 2 days ago, no further symptoms of diarrhea Heparin subcutaneous ,DVT prophylaxis Discharge planning pending culture results and recommendations from podiatry, possible today., -f/u with 3-5 days after d/c Discussed with patient Discussed with Dr. Mark, seen on his behalf D/W nurse (Elvia Bryan) Assessment/Plan seen, examined by myself, Dr Mark, today Discussed with patient Right foot much improved however still mildly swollen Discharge home on 1 week of oral Levaquin and minocycline Follow-up with podiatry in 1-2 days Keep right lower extremity elevated above the heart level for the next week Discussed with mid level provider The exam, history, and the medical decision-making described in the above note were completed with the assistance of the mid-level provider. I reviewed the findings presented. I attest that I had a [id number] encounter with the patient on the same day, and personally performed and documented my assessment and findings in the medical record. 40 minutes spent today on discharge management (Xi Mark MD) Elvia Bryan Jun 16, 2017 11:19 Xi Mark MD Jun 16, 2017 18:16
[2017-06-16 12:00] VITALS: BP 131/75; PULSE 84; RESP 20; TEMP 96.6; O2SAT 92
--- NOTE | 2017-06-16 12:16 | PD.POD ---
Subjective Podiatric Problems Right foot ulceration with improving cellulitis. Patient feels she has seen improvement over the last 48 hours. She had some bleeding from the wound site, but that has resolved. She denies any n/v/f/h/c/sob/pain. Pain score: 0 Past Med/Surg/Social History Social History Smoking Status: Former Smoker Objective Vital Signs Vital Signs Date Time Temp Pulse Resp B/P (MAP) Pulse Ox O2 Delivery O2 Flow Rate FiO2 06/16/17 08:00 97.3 70 18 135/62 (86) 95 06/16/17 00:00 96.1 58 19 124/61 (82) 98 06/15/17 20:00 96.0 68 19 121/56 (77) 96 06/15/17 16:00 96.7 54 18 136/72 (93) 98 06/15/17 13:38 20 Coded Allergies: No Known Allergies (Verified , 06/14/17) Exam-Podiatry Remarks Right second toe ulceration unchanged, but erythema has resolved and edema is reduced by 50%. Assessment & Plan A/P 1) Right foot 2nd digit stage II ulceration with resolved cellulitis -wound cxs +MSSA -suggest d/c on 10 days of PO abx, renally dosed -pt educated on wound care at home, she is comfortable to perform on her own -ok to d/c from podiatry standpoint -f/u with 3-5 days after d/c Vashti Ozuna DPM Jun 16, 2017 12:16
[2017-06-16 16:00] VITALS: BP 98/56; PULSE 62; RESP 20; TEMP 96.5; O2SAT 97
[2017-06-16] MEDS ORDERED: LEVA750T9 PO (17:24)
[2017-06-16] MEDS ORDERED: MINO100 PO (17:24)
--- NOTE | 2017-06-16 18:21 | HHI.DS ---
Discharge Summary Admission Date Jun 14, 2017 at 13:44 Discharge Date: Jun 16, 2017 Admitting Diagnosis acute right 3rd toe cellulitis with osteomyelitis (1) Osteomyelitis ICD Codes: M86.9 - Osteomyelitis, unspecified Status: Acute (2) Cellulitis of toe of right foot ICD Codes: L03.031 - Cellulitis of right toe Status: Acute (3) Peripheral arterial disease ICD Codes: I73.9 - Peripheral vascular disease, unspecified Status: Chronic (4) Peripheral neuropathy ICD Codes: G62.9 - Polyneuropathy, unspecified Status: Chronic (5) Hypertension ICD Codes: I10 - Essential (primary) hypertension Status: Chronic (6) Low back pain ICD Codes: M54.5 - Low back pain Status: Chronic (7) recent lumbar surgery Status: Chronic (8) CKD (chronic kidney disease) stage 3, GFR 30-59 ml/min ICD Codes: N18.3 - Chronic kidney disease, stage 3 (moderate) Status: Chronic Procedures Debridement Brief History Mrs. Sequeira was a 71-year-old white female with significant past medical history of peripheral arterial disease status post left SFA stent and angioplasty, peripheral neuropathy, hypertension, hyperlipidemia. 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 According to the patient, approximately 12 days ago she injured her toes on a piece of furniture. Initially she had bruising she didn't think much of it and continue on with her activities. Patient had history of chronic neuropathy and has chronic burning-like sensation. Her sensation was diminished on her toes. On Saturday, she started to notice some erythema and swelling of the third toe which continued up to the foot with swelling and erythema. She went to see her abalone fisherman Dr. Nakul Medina who evaluated her and instructed her to come to the emergency room for evaluation. Indicated that he collected cultures and did imaging studies and there was concern that this could be osteomyelitis. Patient did have a history of chronic kidney disease stage III for which she sees Dr. Eugene. It appeared that she was at baseline. CBC/BMP: 06/15/17 0508 06/15/17 0508 Significant Findings Laboratory Tests Test 06/14/17 12:30 06/14/17 14:05 06/15/17 05:08 Red Blood Count 3.85 MIL/MM3 (4.00-5.30) 3.68 MIL/MM3 (4.00-5.30) Hemoglobin 10.2 GM/DL (11.6-15.3) 9.9 GM/DL (11.6-15.3) Hematocrit 32.7 % (35.0-46.0) 31.3 % (35.0-46.0) Mean Corpuscular Hemoglobin 26.4 PG (27.0-34.0) Mean Corpuscular Hemoglobin Concent 31.1 % (32.0-36.0) 31.8 % (32.0-36.0) Erythrocyte Sedimentation Rate 46 mm/hr (0-30) Blood Urea Nitrogen 20 MG/DL (7-18) Creatinine 1.35 MG/DL (0.50-1.00) 1.36 MG/DL (0.50-1.00) Random Glucose 117 MG/DL (74-106) Estimat Glomerular Filtration Rate 38 ML/MIN (>89) 38 ML/MIN (>89) C-Reactive Protein 5.62 MG/DL (0.00-0.30) Activated Partial Thromboplast Time 24.0 SEC (24.3-30.1) Imaging Last Impressions Foot X-Ray 06/15/17 0000 Signed Impressions: Service Date/Time: Thursday, June 15, 2017 07:55 - CONCLUSION: Soft tissue swelling of the posterior aspect of the distal foot. No erosion or associated changes are present within the second digit to indicate osteomyelitis on this exam. Ramón Arora MD PE at Discharge General Appearance: Well Developed, Comfortable, Anxious Eyes Eye Exam: Pupils Equal, Pupils Reactive Ears & Nose Ears & Nose Exam: Nasal Mucosa [place] Throat Throat Exam: Oral Mucosa [place] & Moist Neck Neck Exam: Neck Supple Pulmonary Resp Exam: Clear Bilaterally, Breath Sounds Equal, No Distress Cardiology CV Exam: Regular Gastrointestinal/Abdomen GI Exam: Soft, Non-Tender, Bowel Sounds Present Musculoskeletal MS Exam: Joints Intact Integumentary Skin Exam: Warm, Dry, Ulcer(s) (ulcerated areas on the right foot metacarpal, second toe) Extremeties Extremities Exam: No Edema Extremeties Remarks lower extremity no erythema rt. LE Neurologic Neuro Exam: Alert, Awake, Oriented, Speech Clear, Moving All Extremities Hospital Course Assessment/Plan Assessment/Plan Assessment/Plan Increased anxiety today. Didn't get food this am until 1045, ordered last am. Nurse and myself took her coffee and p-butter crackers, but still updet. Supportive care. Didnt like dressing yesterday. Reassured her dressing was clean without any further bleeding. These are the diagnoses that were used to treat this patient during this brief hospital stay. Consultations include podiatry with hospitalist managing admission and discharge planning. Vital signs were monitored every 4 hours and as warranted along with appropriate labs for her right foot second digit cellulitis Right foot 2nd digit stage II ulceration with resolving cellulitis, as well as kidney disease, ruling out osteomyelitis infectious disease, antibiotic needs, and debridement done per podiatry. -bedside debridement done yesterday per podiatry and dressing secured, No active bleeding noted. iv abx until DC, likely d/c on 10 days PO abx pending final wound cxs -daily dressing changes order for nursing staff, no erythema RLL osteomyelitis right foot and metacarpals ruled out Likely will need 10 days of by mouth antibiotics, wound culture resulted today negative Podiatry, did mild bedside debridement according to patient this a.m., bleeding and oozing initially afterwards but has stopped now. Will have nurse clean, and give instructions for dressing -Blood and wound cultures, blood culture still pending Zosyn and vancomycin IV History of Peripheral arterial disease, stable, status balloon angioplasty and stent to the left superficial femoral artery and popliteal artery January 2017 Medical management ,Plavix 75 mg daily Chronic kidney disease stage III, stable, Encourage PO fluids -Avoid nephrotoxic agents, medical management monitor labs Anemia probably secondary to chronic kidney disease, stable monitor labs Peripheral neuropathy Medical management gabapentin 300 mg by mouth 3 times a day Hypertension, stable Chronic low back pain, lumbar surgery 2 in the past 2 years Continue pain management Monitor for any constipation, bowel regimen explained to patient, diarrhea X 1, 2 days ago, no further symptoms of diarrhea Heparin subcutaneous ,DVT prophylaxis Discharge planning pending culture results and recommendations from podiatry, possible today., -f/u with 3-5 days after d/c On day of discharge, seen, examined by myself, Dr Mark, today Discussed with patient Right foot much improved however still mildly swollen Discharge home on 1 week of oral Levaquin and minocycline Follow-up with podiatry in 1-2 days Keep right lower extremity elevated above the heart level for the next week Discussed with mid level provider Pt Condition on Discharge: Fair Discharge Disposition: Discharge Home Discharge Instructions DIET: Follow Instructions for: Heart Healthy Diet Activities you can perform: Weight Bearing as Joseluis Follow up Referrals: Podiatry - 3-5 Days @ [facility] with Mark Mccoy DPM New Medications: Levofloxacin (Levaquin) 750 Mg Tablet 750 MG PO DAILY for Infection for 7 Days, #7 TAB 0 Refills Minocycline (Minocycline) 100 Mg Cap 100 MG PO BID for Mgmt Bacterial Infection for 7 Days, #14 CAP 0 Refills Continued Medications: Allopurinol (Allopurinol) 100 Mg Tab 100 MG PO DAILY for Gout, #30 TAB 0 Refills Cyclobenzaprine (Flexeril) 10 Mg Tab 10 MG PO DAILY for Muscle Spasm, #90 TAB 0 Refills Estradiol (Estrace) 2 Mg Tab 2 MG PO DAILY for Estrogen Supplements, #30 TAB 0 Refills Furosemide (Furosemide) 20 Mg Tab 20 MG PO DAILY, #30 TAB 0 Refills Gabapentin (Gabapentin) 300 Mg Cap 300 MG PO TID, #90 CAP 0 Refills Lisinopril (Lisinopril) 20 Mg Tab 20 MG PO DAILY, #30 TAB 0 Refills Omeprazole (Omeprazole) 40 Mg Cap 40 MG PO DAILY, #30 CAP 0 Refills Oxycodone-Acetaminophen (Percocet) 5-325 mg Tab 1 TAB PO Q6H PRN for PAIN, TAB 0 Refills Potassium Chloride Microencaps (Klor-Con M15) 15 Meq Tab 15 MEQ PO Q12HR for Electrolyte Replacement, #60 TAB 0 Refills Probiotic Product (Probiotic Acidophilus) 1 Cap Cap 1 CAP PO DAILY Solifenacin (Vesicare) 5 Mg Tab 5 MG PO DAILY for Urinary Symptom Managemen, #30 TAB 0 Refills Tramadol (Tramadol) 50 Mg Tab 50 MG PO Q6H PRN for PAIN, TAB 0 Refills Triamterene-Hydrochlorothiazide (Triamterene-Hydrochlorothiazide) 50-25 Mg Cap 1 CAP PO DAILY, #30 CAP 0 Refills Elvia Bryan Jun 16, 2017 18:21
== END 2017-06-16 17:56 | disposition home or self-care (01) | DRG 572 ==
LOC: NEPE 12:00 → NEDA 13:44 → N07A 15:09
PROVIDERS: ADMIT Specialist; ATTEND Specialist
PROC: 0HBMXZZ Excision of Right Foot Skin, External Approach (ICD-10-PCS; principal; 2017-06-15)
DX: L03.031 Cellulitis of right toe (principal); G62.9 Polyneuropathy, unspecified; N18.3 Chronic kidney disease, stage 3 (moderate); L89.892 Pressure ulcer of other site, stage 2; I12.9 Hypertensive chronic kidney disease with stage 1 through stage 4 chronic kidney disease, or unspecified chronic kidney disease; E78.00 Pure hypercholesterolemia, unspecified; F41.9 Anxiety disorder, unspecified; K44.9 Diaphragmatic hernia without obstruction or gangrene; K21.9 Gastro-esophageal reflux disease without esophagitis; M19.90 Unspecified osteoarthritis, unspecified site; Z85.828 Personal history of other malignant neoplasm of skin; I73.9 Peripheral vascular disease, unspecified; M54.5 Low back pain; D64.9 Anemia, unspecified; G89.29 Other chronic pain; M10.9 Gout, unspecified; N32.81 Overactive bladder; M35.3 Polymyalgia rheumatica; Z95.820 Peripheral vascular angioplasty status with implants and grafts; Z87.891 Personal history of nicotine dependence
CPT/HCPCS: 73630; 80048; 83735; 85025; 85610; 85652; 85730; 86140; 86403; 87040; 87070; 87147; 87186; 87205; J1170; J1644; J2543; J3370; J7050

== ENCOUNTER → 2018-01-20 | Outpatient (CLI) | payer MEDICARE ==
[~2018-01-20] MED LIST changes: +ASPI81TA23 PO; +CYCL10TA PO; -CYCL1TAB29 PO; +LEVA750T9 PO; +MINO100 PO; +PLAV75TA29 PO; -VESI5TAB PO; +VESI5TAB2 PO; +ZANT150T2 PO
[2018-01-20 14:32] LABS: AUTOMATED NEUTROPHIL # 2.8 TH/MM3 (1.8-7.7); BASOPHIL # 0.1 TH/MM3 (0-0.2); BASOPHIL % 1.3 % (0.0-2.0); EOSINOPHIL # 0.2 TH/MM3 (0-0.4); EOSINOPHIL % 3.2 % (0.0-4.0); HEMATOCRIT 34.6 % (35.0-46.0); HEMOGLOBIN 10.9 GM/DL (11.6-15.3); LYMPH % 38.6 % (9.0-44.0); LYMPHOCYTE # 2.2 TH/MM3 (1.0-4.8); MEAN CELL VOLUME 78.9 FL (80.0-100.0); MEAN CORPUSCULAR HEMOGLOBIN 24.9 PG (27.0-34.0); MEAN CORPUSCULAR HGB CONC 31.5 % (32.0-36.0); MEAN PLATELET VOLUME 7.6 FL (7.0-11.0); MONO % 7.8 % (0.0-8.0); MONOCYTE # 0.4 TH/MM3 (0-0.9); NEUT % 49.1 % (16.0-70.0); PLATELET COUNT 330 TH/MM3 (150-450); RED BLOOD COUNT 4.38 MIL/MM3 (4.00-5.30); RED CELL DISTRIBUTION WIDTH 16.9 % (11.6-17.2); WHITE BLOOD COUNT 5.8 TH/MM3 (4.0-11.0)
[2018-01-20 14:41] LABS: BILIRUBIN, URINE NEG (NEG); BLOOD, URINE NEG (NEG); GLUCOSE,URINE NEG (NEG); KETONE, URINE NEG (NEG); MUCUS URINE FEW /lpf (OCC); NITRITE,URINE NEG (NEG); SQUAMOUS EPITHELIAL CELL URINE 9 /hpf (0-5); URINE COLOR YELLOW (YELLW/STRAW); URINE LEUKOCYTE ESTERASE TRACE (NEG)
--- NOTE | 2018-01-20 16:32 | EKG ---
Date Performed: 01/20/2018 Time Performed: 13:58:08 PTAGE: 72 years EKG: Sinus rhythm LOW QRS VOLTAGE IN PRECORDIAL LEADS BORDERLINE ECG No significant change from prior electrocardiogra mPablo DOCTOR: Gene Irizarry Interpretating Date/Time 01/20/2018 16:30:43
== END ==
LOC: CPRE 13:40
PROVIDERS: ATTEND Obstetrics & Gynecology
DX: Z01.810 Encounter for preprocedural cardiovascular examination (principal); Z01.812 Encounter for preprocedural laboratory examination; N81.10 Cystocele, unspecified; N81.6 Rectocele; R94.31 Abnormal electrocardiogram [ECG] [EKG]
CPT/HCPCS: 36415; 81001; 85025; 93005

== ENCOUNTER 2018-01-22 12:44 | Observation (INO) | payer MEDICARE ==
--- NOTE | 2018-01-21 12:54 | MH ---
cc: Ramón Bro MD DATE OF ADMISSION: 01/22/2018 ADMITTING DIAGNOSIS: Cystocele, rectocele. HISTORY OF PRESENT ILLNESS: This is a 72-year-old single white female, para 3-0-0-2 has had increasing vaginal tissue prolapse over the last 1 year and is now admitted for surgical repair. PAST SURGICAL HISTORY: She had a mini lap tubal in 1970, a D and C in 1973 and 1981, bilateral varicose vein stripping in 1972, surgery on her feet for arthritis. She had a CORINA and BSO in 1985, a left inguinal hernia repair in 1989, anterior and posterior repair in 2007. She required a stent in the left lower extremity in 2016. She has a history of L3, L4 and L5 disk disorder. MEDICATIONS: Include: 1. Plavix. 2. Baby aspirin. 3. Estradiol. 5. Oxybutynin. She will bring in a list of any other medications. ALLERGIES: NONE. TRANSFUSIONS: None. OBSTETRIC HISTORY: Three vaginal deliveries. SOCIAL HISTORY: She is retired, single. Alcohol, occasional. Tobacco, none. Drugs, none. FAMILY HISTORY: Noncontributory. REVIEW OF SYSTEMS: Negative. PHYSICAL EXAMINATION: GENERAL: This is a well-nourished, well-developed white female. VITAL SIGNS: Stable. HEENT: Normal. CHEST: Clear. HEART: Regular rate. BREASTS: Symmetrical. ABDOMEN: Benign. PELVIC: The vagina shows a cystocele, small rectocele, good vault support, bimanual without mass or pain. ASSESSMENT: As above. PLAN: She is now admitted for a vaginal AP repair. While in the office, I explained the procedures, risk, benefits and complications and the patient would like to proceed. Ramón Bro MD JAW/DL , 12:41 PM , 12:53 PM
[~2018-01-22] VITALS: Ht 168.9 cm; Wt 86.7 kg
[~2018-01-22 12:44] MED LIST changes: -LEVA750T9 PO; -MINO100 PO; -PERC5TAB12 PO; -TRIA1CAP PO
[2018-01-22] MEDS ORDERED: ceFAZolin INJ 1,000 MG VIAL ONE (13:53)
[2018-01-22] MEDS ORDERED: ACETAMINOPHEN 1000 MG/100 ML 100 ML IV ONE ×3 (13:53→14:50)
[2018-01-22] MEDS ORDERED: SODIUM CHLORIDE 0.9% INJ 100 ML ONE (13:53)
[2018-01-22] MEDS ORDERED: ceFAZolin 1,000 MG/NS 100 ML IV ONE ×2 (14:00)
[2018-01-22] MEDS ORDERED: CHLORHEXIDINE GLUCONATE 2 % 1 PACK (2 CLOTHS) TOPICAL PRN (14:00)
[2018-01-22] MEDS ORDERED: SODIUM CHLORID 0.9% 500 ML IV PRN (14:00)
[2018-01-22] MEDS ORDERED: LACTATED RINGER'S 1000 ML IV PRN (14:00)
[2018-01-22] MEDS ORDERED: POVIDONE IODINE 5% (ANTISEPSIS KIT) 4 APPLICATIONS EACH NARE PRN (14:00)
[2018-01-22] MEDS ORDERED: METOPROLOL TARTRATE 25 MG TAB PO PRN (14:00)
[2018-01-22] MEDS ORDERED: MIDAZOLAM HCL 2 MG/2 ML VIAL ONE (14:51)
[2018-01-22] MEDS ORDERED: ESTROGENS CONJUGATED VAG CREA 15 APPL/30 GM TUBE ONE (15:05)
[2018-01-22] MEDS ORDERED: LACTATED RINGER'S 1000 ML INJ 1,000 ML IV SCH (17:05)
[2018-01-22] MEDS ORDERED: MORPHINE SULFATE 4 MG/ML INJ ONE (17:10)
[2018-01-22] MEDS ORDERED: *morphine SULFATE 4 MG/ML PERIprocedure ONLY ONE ×2 (17:10→17:17)
[2018-01-22] MEDS ORDERED: diphenhydrAMINE HCL 25 MG CAP PO PRN (17:15)
[2018-01-22] MEDS ORDERED: HYDROmorphone HCL PF 0.5 MG/0.5 ML SYRINGE IV PUSH PRN (17:15)
[2018-01-22] MEDS ORDERED: ONDANSETRON HCL 4 MG/2 ML VIAL IV PUSH PRN (17:15)
[2018-01-22] MEDS ORDERED: ZOLPIDEM TARTRATE 5 MG TAB PO PRN (17:15)
[2018-01-22] MEDS ORDERED: PROMETHAZINE INJ 25 MG/ML VIAL IM PRN (17:15)
--- NOTE | 2018-01-22 17:26 | MP ---
cc: Ramón Bro MD DATE OF OPERATION: 01/22/2018 PREOPERATIVE DIAGNOSIS: Cystocele, rectocele, enterocele. POSTOPERATIVE DIAGNOSIS: Cystocele, rectocele, enterocele. PROCEDURE PERFORMED: Vaginal anterior and posterior repair and vaginal closure of enterocele. ANESTHESIA: General, ET. SURGEON: Ramón Bro MD TRENCHING MACHINE OPERATOR: Eligio ESTIMATED BLOOD LOSS: 100 mL FLUIDS: 600 mL of crystalloid. OBJECTIVE FINDINGS: Following induction of adequate general endotracheal anesthesia, the patient was prepped and draped supine on the operating table, dorsal lithotomy position, usual sterile fashion, with the bladder being drained via Bergman catheterization. The perineum was opened midline with a knife. Using Allis clamps for traction, the Metzenbaum scissors for dissection, the vaginal mucosa undermined over the rectocele, enterocele, cystocele and urethrocele. Working anteriorly, the vaginal mucosa was from the underlying perivesical and the periurethral fascia. When well mobilized, the UV junction was plicated with 2-0 Vicryl stitch, Alayna fashion. Additional sutures were placed to elevate the urethrocele, cystocele and a second layer at the UV junction. Excess anterior vaginal mucosa was trimmed and the anterior vaginal wall closed with interrupted sutures of 2-0 Vicryl in [id number] fashion. We then dissected the enterocele sac open and ligated that with a pursestring suture of 2-0 Vicryl, and closed the vagina over the enterocele with interrupted sutures of 2-0 Vicryl to also incorporate uterosacral ligaments for support. Working posteriorly, the perirectal fascia was closed with a running stitch of 2-0 Vicryl. Excess posterior vaginal mucosa was trimmed. The posterior wall was closed with a running locking stitch of 2-0 Vicryl. The perineum reapproximated with 2-0 Vicryl interrupted and the perineal skin closed with a running 2-0 Vicryl. Inspection with good hemostasis. Vagina was packed with 2 inch gauze moistened in Premarin cream. Rectal exam was normal, all counts were correct, and the patient was awakened and taken to the recovery room in good condition. Ramón Bro MD JAW/SB , 05:04 PM , 05:25 PM
[2018-01-22] MEDS ORDERED: *HYDROmorphone PF 0.5 MG/0.5 ML PERIprocedure ONLY ONE (17:33)
[2018-01-22] MEDS ORDERED: KETOROLAC TROMETHAMINE 30 MG/ML (IVP) VIAL IVP SCH (18:00)
[2018-01-22] MEDS ORDERED: ACETAMINOPHEN 1000 MG/100 ML VIAL IV SCH (18:00)
[2018-01-22 18:55] VITALS: BP 185/97; PULSE 54; RESP 20; TEMP 97.5; O2SAT 98
[2018-01-22] MEDS ORDERED: CYCLOBENZAPRINE HCL 10 MG TAB PO PRN (19:00)
[2018-01-22] MEDS ORDERED: DO NOT ADM ANY ANTICOAGULANT DRUGS PRN (19:00)
[2018-01-22] MEDS ORDERED: FUROSEMIDE 20 MG TAB PO PRN (19:00)
[2018-01-22 20:00] VITALS: BP 163/77; PULSE 71; RESP 18; TEMP 98.1; O2SAT 100
[2018-01-22] MEDS ORDERED: POTASSIUM CHLORIDE 15 MEQ PO PRN (21:45)
[2018-01-22] MEDS: DOCUSATE SODIUM 100 MG CAP PO SCH (21:55)
[2018-01-22] MEDS: ACETAMINOPHEN 1000 MG/100 ML VIAL IV SCH (21:57)
[2018-01-22] MEDS: KETOROLAC TROMETHAMINE 30 MG/ML (IVP) VIAL IVP SCH (21:58)
[2018-01-22] MEDS ORDERED: GABAPENTIN 300 MG CAP PO ONE (22:30)
[2018-01-22] MEDS: LISINOPRIL 20 MG TAB PO SCH (22:54)
[2018-01-23] VITALS: BP 131/66; PULSE 67; RESP 18; TEMP 98.2; O2SAT 98
[2018-01-23 04:00] VITALS: BP 131/66; PULSE 64; RESP 18; TEMP 98.4; O2SAT 100
[2018-01-23 05:47] LABS: AUTOMATED NEUTROPHIL # 5.3 TH/MM3 (1.8-7.7); BASOPHIL % 0.5 % (0.0-2.0); EOSINOPHIL % 0.2 % (0.0-4.0); HEMATOCRIT 33.2 % (35.0-46.0); HEMOGLOBIN 10.6 GM/DL (11.6-15.3); LYMPH % 17.3 % (9.0-44.0); LYMPHOCYTE # 1.2 TH/MM3 (1.0-4.8); MEAN CELL VOLUME 78.4 FL (80.0-100.0); MEAN CORPUSCULAR HGB CONC 31.9 % (32.0-36.0); MEAN PLATELET VOLUME 7.3 FL (7.0-11.0); MONOCYTE # 0.3 TH/MM3 (0-0.9); PLATELET COUNT 308 TH/MM3 (150-450); RED BLOOD COUNT 4.24 MIL/MM3 (4.00-5.30); RED CELL DISTRIBUTION WIDTH 16.6 % (11.6-17.2); WHITE BLOOD COUNT 6.9 TH/MM3 (4.0-11.0)
[2018-01-23] MEDS: KETOROLAC TROMETHAMINE 30 MG/ML (IVP) VIAL IVP SCH (05:59)
[2018-01-23] MEDS: ACETAMINOPHEN 1000 MG/100 ML VIAL IV SCH (06:00)
[2018-01-23 06:12] LABS: BICARBONATE 27.7 MEQ/L (21.0-32.0); CALCIUM 8.5 MG/DL (8.5-10.1); CREATININE 1.3 MG/DL (0.50-1.00)
[2018-01-23 08:00] VITALS: BP 115/67; PULSE 65; RESP 18; TEMP 97.5; O2SAT 100
--- NOTE | 2018-01-23 08:44 | HHI.DCPOC ---
Discharge Care Plan Report Symptoms to Your Doctor -Temperature above 100.5 degrees -Redness, of incision or excessive or foul smelling drainage -Unusual pain or calf pain -Increased vaginal bleeding -Painful or difficulty urinating -Feelings of extreme sadness or anxiety after 2 weeks Goals to Promote Your Health * To prevent worsening of your condition and complications * To maintain your health at the optimal level Directions to Meet Your Goals Take your medications as prescribed Follow your dietary instruction Follow activity as directed Ensure plenty of rest for recovery Drink fluids for hydration Keep your appointments as scheduled Take your immunizations and boosters as scheduled If your symptoms worsen call your PCP, if no PCP go to Urgent Care Center or Emergency Room Smoking is Dangerous to Your Health. Avoid second hand smoke Call the 24-hour crisis hotline for domestic abuse at Ramón Bro MD January 23, 2018 08:44
[2018-01-23] MEDS: LISINOPRIL 20 MG TAB PO SCH (08:48)
[2018-01-23] MEDS: DOCUSATE SODIUM 100 MG CAP PO SCH (08:48)
[2018-01-23] MEDS ORDERED: GABAPENTIN 300 MG CAP PO SCH (09:00)
[2018-01-23] MEDS ORDERED: FAMOTIDINE 20 MG TAB PO SCH (09:00)
[2018-01-23] MEDS ORDERED: LISINOPRIL 20 MG TAB PO SCH (09:00)
[2018-01-23] MEDS ORDERED: ALLOPURINOL 100 MG TAB PO SCH (09:00)
[2018-01-23] MEDS ORDERED: TOLTERODINE TARTRATE 2 MG CAP LA PO SCH (09:00)
[2018-01-24] MEDS ORDERED: PANTOPRAZOLE SOD 40 MG DELAYED RELEASE TAB PO SCH (09:00)
== END 2018-01-23 10:20 | disposition home or self-care (01) ==
LOC: HSDC 12:44 → HSDI 17:06 → H1EA 18:39
PROVIDERS: ADMIT Obstetrics & Gynecology; ATTEND Obstetrics & Gynecology
DX: N81.6 Rectocele (principal); N81.5 Vaginal enterocele; N81.10 Cystocele, unspecified; Z79.82 Long term (current) use of aspirin; Z79.02 Long term (current) use of antithrombotics/antiplatelets
CPT/HCPCS: 00942; 57265; 80048; 85025; 88302; 94150; 96374; 96375; 96376; G0378; J0131; J0690; J1170; J1885; J2250; J2270; J3010; J7120